=== PATIENT | male | born 1980 | race Two or more races ===

== ENCOUNTER → 2017-10-07 | Outpatient (CLI) | payer MEDICAID | END | disposition home or self-care (01) | LOC: CFH 13:28 | PROVIDERS: ATTEND Internal Medicine Cardiovascular Disease | DX: I35.1 Nonrheumatic aortic (valve) insufficiency (principal); E78.5 Hyperlipidemia, unspecified; G47.30 Sleep apnea, unspecified; Z87.891 Personal history of nicotine dependence | CPT/HCPCS: 93306 ==

== ENCOUNTER 2018-10-05 12:07 | Inpatient (IN) | payer MEDICAID ==
[~2018-10-05] VITALS: Ht 167.6 cm; Wt 88.0 kg
[2018-10-05] MEDS ORDERED: ACETAMINOPHEN 500 MG TABLET ONE (12:42)
[2018-10-05] MEDS ORDERED: PLEASE ENTER ALLERGIES MC SCH (13:00)
[2018-10-05] MEDS ORDERED: ACETAMINOPHEN 500 MG TABLET PO ONE (13:00)
--- NOTE | 2018-10-05 13:08 | NUR ---
PT MEDICATED FOR FEVER. BLOOD CULTURES X 2 DRAWN BY LAB. PT UPDATED ON PLAN OF CARE, DENIES ADDITIONAL NEEDS AT THIS TIME.
[2018-10-05 13:09] LABS: BASOPHILS # (AUTO) 0.02 x10^3/uL (0-0.1); BASOPHILS % (AUTO) 0 % (0-1); EOSINOPHILS # (AUTO) 0.01 x10^3/uL (0-0.4); EOSINOPHILS % (AUTO) 0 % (1-7); LYMPHOCYTES # (AUTO) 0.83 x10^3/uL (1-3.4); LYMPHOCYTES % (AUTO) 11 % (22-44); MD NO; MEAN CORPUSCULAR HEMOGLOBIN 30.4 pg (27.5-34.5); MEAN CORPUSCULAR HGB CONC 34.9 g/dL (33.2-36.2); MEAN CORPUSCULAR VOLUME 87.4 fL (81-97); MEAN PLATELET VOLUME 7.6 fL (7.4-10.4); MONOCYTES % (AUTO) 1 % (2-9); NEUTROPHILS # (AUTO) 6.65 x10^3/uL (1.8-6.8); NEUTROPHILS % (AUTO) 87 % (42-75); PLATELET COUNT 223 x10^3/uL (130-400); RED BLOOD COUNT 5.11 x10^6/uL (4.38-5.82); RED CELL DISTRIBUTION WIDTH 13.1 % (9.4-14.8)
[2018-10-05 13:17] LABS: INTERNATIONAL NORMALIZED RATIO 1.09 (0.93-1.1); PROTHROMBIN TIME 11.4 Seconds (9.6-11.5)
[2018-10-05 13:21] LABS: ALANINE AMINOTRANSFERASE 49 U/L (12-78); ALBUMIN 4.4 g/dL (3.4-5.0); ANION GAP 7 mmol/L (5-15); CHLORIDE 104 mmol/L (98-107); CREATININE 1.13 mg/dL (0.7-1.3)
[2018-10-05 13:22] LABS: ALKALINE PHOSPHATASE 117 U/L (45-117); TOTAL PROTEIN 8.3 g/dL (6.4-8.2)
[2018-10-05] MEDS ORDERED: OMNIPAQUE 350 MG/ML, 100ML BOTTLE ONE (13:30)
--- NOTE | 2018-10-05 14:53 | NUR ---
REPORT TO RADHA HARDEN, [place].
[2018-10-05] MEDS ORDERED: CEFTRIAXONE PMX 1GM/50ML 50 ML ONE (14:54)
[2018-10-05] MEDS ORDERED: CEFTRIAXONE PMX 1GM/50ML 50 ML IV ONE (15:00)
[2018-10-05] MEDS ORDERED: BUPIVACAINE/PF-EPI 0.5% 1:200K ONE (15:13)
--- NOTE | 2018-10-05 15:14 | NUR ---
Note ilsa in EDM - 10/05/18 at 1515 by CHANCE PT RESTING ON GURNEY. PAC TO BEDSIDE TO ASSESS. RESP EVEN AND UNLABORED.
--- NOTE | 2018-10-05 15:39 | NUR ---
Matthew rosenbaum in [facility] - 10/05/18 at 1539 by CHANCE REPORT TO KIRTI HARDEN RN
[2018-10-05] MEDS ORDERED: FENTANYL PF 100 MCG/2ML ONE ×2 (15:44→16:50)
[2018-10-05] MEDS ORDERED: MIDAZOLAM 1 MG/ML, 2ML ONE (15:44)
[2018-10-05] MEDS ORDERED: OMNIPAQUE 350 MG/ML, 50 ML BOTTLE IV ONE (16:21)
[2018-10-05] MEDS ORDERED: BUPIVACAINE/PF-EPI 0.5% 1:200K INFIL ONE (16:21)
[2018-10-05] MEDS ORDERED: FENTANYL PF 100 MCG/2ML IV PRN (16:30)
[2018-10-05] MEDS ORDERED: SCOPOLAMINE PATCH, 1.5MG PATCH.TD72 TD PRN (16:30)
[2018-10-05] MEDS ORDERED: ALBUTEROL/IPRATROPIUM 2.5MG/0.5MG, 3 ML NPPB PRN (16:30)
[2018-10-05] MEDS ORDERED: MEPERIDINE/PF 25MG/0.5ML IVPush PRN (16:30)
[2018-10-05] MEDS ORDERED: MIDAZOLAM 1 MG/ML, 2ML IV PRN (16:30)
[2018-10-05] MEDS ORDERED: hydrALAzine 20 MG/ML, 1ML IV PRN (16:30)
[2018-10-05] MEDS ORDERED: OXYcodone 5 MG/5 ML ORAL.SOL UDC PO PRN (16:30)
[2018-10-05] MEDS ORDERED: ONDANSETRON 2MG/ML, 2ML IV PRN ×2 (16:30→19:30)
[2018-10-05] MEDS ORDERED: LABETALOL 5MG/ML, 20ML IV PRN (16:30)
[2018-10-05] MEDS ORDERED: PROMETHAZINE 25 MG/ML, 1ML IV PRN (16:30)
[2018-10-05] MEDS ORDERED: OMNIPAQUE 350 MG/ML, 50 ML BOTTLE ONE (16:33)
[2018-10-05] MEDS ORDERED: KETOROLAC 30 MG/1 ML ONE (16:42)
[2018-10-05] MEDS ORDERED: PROPOFOL 10 MG/ML, 20ML ONE (16:42)
[2018-10-05] MEDS ORDERED: ROCURONIUM 10MG/ML,5ML ONE (16:42)
[2018-10-05] MEDS ORDERED: ONDANSETRON 2MG/ML, 2ML ONE (16:42)
[2018-10-05] MEDS ORDERED: DEXAMETHASONE 4 MG/ML, 1ML ONE (16:42)
[2018-10-05] MEDS ORDERED: GLYCOPYRROLATE 0.2MG/1ML, 5ML ONE (16:42)
[2018-10-05] MEDS ORDERED: NEOSTIGMINE 1 MG/ML, 10ML ONE (16:42)
[2018-10-05] MEDS ORDERED: SUCCINYLCHOLINE 20 MG/ML, 10ML ONE (16:42)
[2018-10-05] MEDS ORDERED: HYDROmorphone 2 MG/ML, 1ML ONE (16:51)
[2018-10-05] MEDS ORDERED: OXYcodone 5 MG/5 ML ORAL.SOL UDC ONE (16:51)
[2018-10-05] MEDS ORDERED: MEPERIDINE/PF 25MG/ML,1ML ONE (17:03)
[2018-10-05] MEDS: HYDROmorphone 2 MG/ML, 1ML IVPush PRN ×2 (17:25→17:34)
[2018-10-05] MEDS ORDERED: DIPHENHYDRAMINE 50 MG/ML, 1ML IV PRN (19:30)
[2018-10-05] MEDS: LACTATED RINGERS 1,000 ML IV SCH (19:30)
[2018-10-05] MEDS ORDERED: LORazepam 1MG TABLET PO PRN (19:30)
[2018-10-05] MEDS ORDERED: KETOROLAC 30 MG/1 ML IV PRN (19:30)
[2018-10-05] MEDS ORDERED: DIPHENHYDRAMINE 25 MG CAPSULE PO PRN (19:30)
[2018-10-05] MEDS ORDERED: morphine SULFATE 10 MG/ML, 1ML IV PRN (19:30)
[2018-10-05] MEDS ORDERED: LORazepam 2 MG/ML, 1ML IV PRN (19:30)
[2018-10-05 19:39] VITALS: BP 114/67
[2018-10-05] MEDS ORDERED: SIMV40TA3 PO (21:18)
[2018-10-05] MEDS ORDERED: ESOM40SU PO (21:18)
[2018-10-05] MEDS: OXYcodone/APAP 5/325MG TABLET PO PRN (23:14)
[2018-10-06 00:16] VITALS: BP 106/61
[2018-10-06 04:12] VITALS: BP 100/62
[2018-10-06] MEDS: LACTATED RINGERS 1,000 ML IV SCH (05:30)
[2018-10-06] MEDS: OXYcodone/APAP 5/325MG TABLET PO PRN ×2 (05:47→11:23)
[2018-10-06 07:58] VITALS: BP 113/68
[2018-10-06] MEDS ORDERED: ENOXAPARIN 40 MG/0.4 ML SQ SCH (09:00)
[2018-10-06] MEDS ORDERED: OXYC-302 PO (09:48)
[2018-10-06] MEDS ORDERED: POLY17PO5 PO (09:52)
[2018-10-06 11:55] VITALS: BP 118/68
== END 2018-10-06 12:35 | disposition home or self-care (01) | DRG 854 ==
LOC: ED 14:30 → EDIP 14:36 → 4NOR 18:16 → DCLOUNGE 10-06 12:07
PROVIDERS: ADMIT Colon & Rectal Surgery; ATTEND Colon & Rectal Surgery
PROC: BF131ZZ Fluoroscopy of Gallbladder and Bile Ducts using Low Osmolar Contrast (ICD-10-PCS; 2018-10-05)
PROC: 0FT44ZZ Resection of Gallbladder, Percutaneous Endoscopic Approach (ICD-10-PCS; principal; 2018-10-05 15:00)
DX: A41.9 Sepsis, unspecified organism (principal); K62.5 Hemorrhage of anus and rectum; K80.00 Calculus of gallbladder with acute cholecystitis without obstruction; E78.00 Pure hypercholesterolemia, unspecified; G47.30 Sleep apnea, unspecified; J06.9 Acute upper respiratory infection, unspecified; K21.9 Gastro-esophageal reflux disease without esophagitis; R65.20 Severe sepsis without septic shock; Z87.891 Personal history of nicotine dependence; K66.0 Peritoneal adhesions (postprocedural) (postinfection); E78.5 Hyperlipidemia, unspecified; G47.33 Obstructive sleep apnea (adult) (pediatric)
CPT/HCPCS: 36415; 74300; 99285; J3490; 71045; 74177; 80053; 83605; 83690; 85025; 85610; 87040; 88304; 96365; G0378; J0696; J1100; J1170; J1650; J1885; J2175; J2250; J2405; J2704; J2710; J3010; Q9967; J0330; J7120

== ENCOUNTER → 2018-11-04 | Outpatient (CLI) | payer MEDICAID ==
[~2018-11-04] MED LIST: ESOM40SU PO; OXYC-302 PO; POLY17PO5 PO; SIMV40TA3 PO
== END | disposition home or self-care (01) ==
LOC: CFH 12:57
PROVIDERS: ATTEND Internal Medicine Cardiovascular Disease
DX: I35.1 Nonrheumatic aortic (valve) insufficiency (principal); I10 Essential (primary) hypertension; G47.30 Sleep apnea, unspecified; Z87.891 Personal history of nicotine dependence
CPT/HCPCS: 93306

== ENCOUNTER 2019-11-28 09:50 | Outpatient (CLI) | payer MEDICAID ==
[~2019-11-28 09:50] MED LIST changes: +SIMV40TA20 PO; -SIMV40TA3 PO
== END 2019-11-28 23:59 | disposition home or self-care (01) ==
LOC: CFH 09:50
PROVIDERS: ATTEND Internal Medicine Cardiovascular Disease
DX: I08.8 Other rheumatic multiple valve diseases (principal)
CPT/HCPCS: 93306

== ENCOUNTER → 2020-12-10 | Outpatient (CLI) | payer MEDICAID ==
[~2020-12-10] MED LIST changes: -OXYC-302 PO; +OXYC1TAB14 PO
== END | disposition home or self-care (01) ==
LOC: CFH 14:48
PROVIDERS: ATTEND Internal Medicine Cardiovascular Disease
DX: I36.1 Nonrheumatic tricuspid (valve) insufficiency (principal)
CPT/HCPCS: 93306